=== PATIENT | female | born 1960 | race African-American/Black ===

== ENCOUNTER → 2017-07-22 | Outpatient (CLI) | payer OTHER ==
[~2017-07-22] MED LIST: REGADENOSON 0.4 MG/5 ML DISP.SYRIN. IV
== END | disposition home or self-care (01) ==
LOC: PCVCIMAG 13:44
DX: I10 Essential (primary) hypertension (principal); R06.09 Other forms of dyspnea; I47.1 Supraventricular tachycardia; E66.9 Obesity, unspecified; Z79.01 Long term (current) use of anticoagulants; Z87.891 Personal history of nicotine dependence
CPT/HCPCS: 93005; 93306; J2785